=== PATIENT | male | born 1970 | race Caucasian/White ===

== ENCOUNTER → 2023-08-11 | Outpatient (CLI) | payer OTHER ==
[2023-08-11 12:11] LABS: Hematocrit 40.8 % (37.0-53.0); Hemoglobin 14.8 g/dL (13.5-17.5); Mean Corpuscular HGB 32.4 pg (26.0-34.0); Mean Corpuscular HGB Conc 36.3 g/dL (31.5-36.5); Mean Corpuscular Volume 89 fL (80-100); RDW Coefficient Variation 13.2 % (11.7-14.2); Red Blood Cell Count 4.57 M/mm3 (4.30-5.90); White Blood Cell Count 12.15 K/mm3 (4.00-11.30)
[2023-08-11 12:17] LABS: Albumin/Globulin Ratio 0.7 (0.8-1.8); Bilirubin, Total 1.1 mg/dL (0.1-1.0); Bun/Creatinine Ratio 13.9 (12.0-20.0); Calcium, Blood 8.4 mg/dL (8.5-10.1); Creatinine, Blood 1.37 mg/dL (0.60-1.20); Globulin, Blood 4.1 g/dL (2.2-4.0); Total Protein, Blood 7.1 g/dL (6.4-8.2)
[2023-08-11 12:19] LABS: Mean Platelet Volume 11.2 fL (9.1-12.4)
[2023-08-11 12:40] LABS: BAND PERCENT MAN 8 % (0-8); BASOPHILS ABSOLUTE MAN 0.12 K/mm3 (0.00-0.23); BASOPHILS PERCENT MAN 1 % (0-2); LYMPHOCYTES ABSOLUTE MAN 0.72 K/mm3 (0.84-5.20); LYMPHOCYTES PERCENT MAN 6 % (21-46); MONOCYTES ABSOLUTE MAN 0.48 K/mm3 (0.16-1.47); MONOCYTES PERCENT MAN 4 % (4-13); NEUTROPHILS ABSOLUTE MAN 10.81 K/mm3 (1.96-9.15); SEG NEUTROPHILS PERCENT MAN 81 % (41-73)
[2023-08-11 12:44] LABS: Platelet Count 38 K/mm3 (150-400)
[2023-08-11 14:55] LABS: BASOPHILS ABSOLUTE AUTO 0.04 K/mm3 (0.00-0.23); BASOPHILS PERCENT AUTO 0 % (0-2); EOSINOPHILS PERCENT AUTO 3 % (0-6); Hematocrit 39.5 % (37.0-53.0); Hemoglobin 13.9 g/dL (13.5-17.5); IMMATURE GRAN ABSOLUTE AUTO 0.15 K/mm3 (0.00-0.10); IMMATURE GRAN PERCENT AUTO 2 % (0-1); LYMPHOCYTES ABSOLUTE AUTO 0.39 K/mm3 (0.84-5.20); LYMPHOCYTES PERCENT AUTO 4 % (21-46); MONOCYTES ABSOLUTE AUTO 0.55 K/mm3 (0.16-1.47); MONOCYTES PERCENT AUTO 6 % (4-13); Mean Corpuscular HGB Conc 35.2 g/dL (31.5-36.5); Mean Corpuscular Volume 91 fL (80-100); NEUTROPHILS ABSOLUTE AUTO 7.98 K/mm3 (1.96-9.15); NEUTROPHILS PERCENT AUTO 85 % (41-73); RDW Coefficient Variation 13.2 % (11.7-14.2); RDW Standard Deviation 44.7 fL (35.1-46.3); Red Blood Cell Count 4.34 M/mm3 (4.30-5.90); White Blood Cell Count 9.41 K/mm3 (4.00-11.30)
[2023-08-11 14:59] LABS: Mean Platelet Volume 11.2 fL (9.1-12.4); Platelet Count 34 K/mm3 (150-400)
[2023-08-11 15:00] LABS: Bun/Creatinine Ratio 15.6 (12.0-20.0); Calcium, Blood 7.9 mg/dL (8.5-10.1); Creatinine, Blood 1.28 mg/dL (0.60-1.20); Potassium, Blood 3.3 mmol/L (3.5-5.5)
[2023-08-14 12:29] LABS: HIV 1,2 COMBO ANTIGEN/ANTIBODY Negative (Negative)
[2023-08-14 19:02] LABS: HBV CORE ANTIBODIES,TOTAL Negative (Negative)
[2023-08-15 18:25] LABS: HEPATITIS A ANTIBODY, IGM Negative (Negative); HEPATITIS B CORE ANTIBODY, IGM Negative (Negative); HEPATITIS B SURFACE ANTIGEN Negative (Negative); HEPATITIS C AB CIA INTERP Negative (Negative)
== END ==
LOC: LAB 12:02 → LAB SHORT 12:02
PROVIDERS: Family Medicine
DX: D69.6 Thrombocytopenia, unspecified (principal)
CPT/HCPCS: 80048; 80053; 80074; 84145; 85025; 85060; 86704; 87389

== ENCOUNTER 2023-08-15 14:51 | Emergency (ER) | payer OTHER ==
[~2023-08-15] VITALS: Ht 182.9 cm; Wt 81.7 kg
[2023-08-15 15:52] LABS: Hematocrit 34.3 % (37.0-53.0); Hemoglobin 12.4 g/dL (13.5-17.5); Mean Corpuscular HGB 31.6 pg (26.0-34.0); Mean Corpuscular HGB Conc 36.2 g/dL (31.5-36.5); Mean Corpuscular Volume 87 fL (80-100); NRBC ABSOLUTE 0.02 K/mm3 (0.00-0.02); NRBC Auto 0.1 /100 WBC (0.0-0.2); RDW Coefficient Variation 14.3 % (11.7-14.2); RDW Standard Deviation 45.7 fL (35.1-46.3); Red Blood Cell Count 3.93 M/mm3 (4.30-5.90)
[2023-08-15 16:12] LABS: Platelet Count 20 K/mm3 (150-400)
[2023-08-15 16:16] LABS: Albumin, Blood 2.2 g/dL (3.4-5.0); Albumin/Globulin Ratio 0.6 (0.8-1.8); Bilirubin, Total 3.1 mg/dL (0.1-1.0); Bun/Creatinine Ratio 36.4 (12.0-20.0); Calcium, Blood 7.9 mg/dL (8.5-10.1); Creatinine, Blood 1.51 mg/dL (0.60-1.20); Globulin, Blood 3.5 g/dL (2.2-4.0); Potassium, Blood 2.7 mmol/L (3.5-5.5); Total Protein, Blood 5.7 g/dL (6.4-8.2)
[2023-08-15 16:49] LABS: BASOPHILS PERCENT MAN 0 % (0-2); EOSINOPHILS ABSOLUTE MAN 0.17 K/mm3 (0.00-0.68); EOSINOPHILS PERCENT MAN 1 % (0-6); TOTAL CELLS COUNTED 100
[2023-08-15 16:55] LABS: BAND PERCENT MAN 17 % (0-8); LYMPHOCYTES ABSOLUTE MAN 0.35 K/mm3 (0.84-5.20); LYMPHOCYTES PERCENT MAN 2 % (21-46); METAMYELOCYTE ABSOLUTE MAN 0.17 K/mm3 (0.00-0.00); METAMYELOCYTE PERCENT MAN 1 % (0-0); MONOCYTES ABSOLUTE MAN 0.53 K/mm3 (0.16-1.47); MONOCYTES PERCENT MAN 3 % (4-13); MYELOCYTE ABSOLUTE MAN 0.35 K/mm3 (0.00-0.00); MYELOCYTE PERCENT MAN 2 % (0-0); NEUTROPHILS ABSOLUTE MAN 15.93 K/mm3 (1.96-9.15); SEG NEUTROPHILS PERCENT MAN 73 % (41-73)
[2023-08-15 16:56] LABS: Influenza A, PCR NEGATIVE (NEGATIVE); Influenza B, PCR NEGATIVE (NEGATIVE); Resp Syncytial Virus, PCR NEGATIVE (NEGATIVE); SARS-Cov-2 (COVID-19) PCR, MMC NEGATIVE (NEGATIVE)
[2023-08-15 16:56] LABS: PROMYELOCYTE ABSOLUTE MAN 0.17 K/mm3 (0.00-0.00); PROMYELOCYTE PERCENT MAN 1 % (0-0)
[2023-08-15 17:09] LABS: U Amphetamine Screen Not Detected; U Barbituate Screen Not Detected; U Benzodiazapine Screen Not Detected; U Buprenorphine Screen Not Detected; U Cannabinoids Screen Not Detected; U Cocaine Screen Not Detected; U Methadone Screen Not Detected; U Methamphetamine Screen Not Detected; U Opiates Screen Not Detected; U Oxycodone Screen Not Detected; U Phencyclidine Screen Not Detected
[2023-08-15 18:11] LABS: Source, Urine Clean Catch
[2023-08-15 18:19] LABS: Appearance, Urine Cloudy (Clear); Bilirubin, Urine Neg (Neg); Blood, Urine 4+ (Neg); Color, Urine Amber (P-Yellow); Glucose Qualitative, Urine Neg (Neg); Ketones, Urine Neg (Neg); Leukocyte Esterase, Urine 1+ (Neg); Nitrite, Urine Neg (Neg); Protein, Urine 3+ (Neg); Urobilinogen, Urine 1+ (Normal)
[2023-08-15 18:29] LABS: Bilirubin, Indirect 0.5 mg/dL (0.1-0.7); Bilirubin, Total 2.5 mg/dL (0.1-1.0)
[2023-08-15 18:46] LABS: Amorphous Light (0-Heavy); Bacteria Few /hpf; Granular Casts 0-2 /lpf (0); Hyaline Casts 0-2 /lpf (0-2); Squamous Epithelial Cells Few /hpf (Few)
[2023-08-15 18:59] LABS: International Normalized Ratio 1.17; Prothrombin Time Results 12.2 Sec (9.7-11.5)
[2023-08-15 19:20] LABS: IMMATURE RETIC FRACTION 11.5 % (2.3-16.0); RETIC HGB EQUIVALENT 31.2 pg (28.20-36.60); RETICULOCYTE ABSOLUTE 0.0175 M/mm3 (0.0200-0.1100); RETICULOCYTE COUNT PERCENT 0.55 % (0.50-2.50)
[2023-08-15 23:00] VITALS: BP 135/118
[2023-08-16 18:05] LABS: HAPTOGLOBIN 163 mg/dL (30-200)
[2023-08-16 18:33] LABS: HEPATITIS A ANTIBODY, IGM Negative (Negative); HEPATITIS B CORE ANTIBODY, IGM Negative (Negative); HEPATITIS B SURFACE ANTIGEN Negative (Negative); HEPATITIS C AB CIA INTERP Negative (Negative); HEPATITIS C ANTIBODY CIA INDEX 0.05 IV
== END 2023-08-16 00:44 | disposition short-term general hospital (02) ==
LOC: ER 14:51
PROVIDERS: Emergency Medicine; Nurse Practitioner Acute Care
DX: M31.19 Other thrombotic microangiopathy (principal); I60.9 Nontraumatic subarachnoid hemorrhage, unspecified; I26.99 Other pulmonary embolism without acute cor pulmonale; N28.0 Ischemia and infarction of kidney; G93.40 Encephalopathy, unspecified; Z20.822 Contact with and (suspected) exposure to COVID-19
CPT/HCPCS: 0241U; 51701; 70450; 70496; 70498; 71045; 74177; 80053; 80074; 81001; 82140; 82247; 82248; 82550; 83010; 83605; 83615; 83690; 84145; 84443; 85025; 85045; 85384; 85610; 85730; 86880; 87040; 87077; 87086; 87147; 87186; 87449; 93005; 93010; 96361; 96365; 96366; 96367; 96368; 96375; 99285-25; A9270; J0696; J1100; J1885; J2060; J2185; J3370; J3480; J7030; J7050; Q9967

== ENCOUNTER → 2023-09-28 | Outpatient (CLI) | payer OTHER ==
[2023-09-28 17:13] LABS: Hematocrit 34.1 % (37.0-53.0); Hemoglobin 10.2 g/dL (13.5-17.5); Mean Corpuscular HGB 27.8 pg (26.0-34.0); Mean Corpuscular HGB Conc 29.9 g/dL (31.5-36.5); Mean Corpuscular Volume 93 fL (80-100); Platelet Count 636 K/mm3 (150-400); RDW Coefficient Variation 15.9 % (11.7-14.2); RDW Standard Deviation 54.1 fL (35.1-46.3); Red Blood Cell Count 3.67 M/mm3 (4.30-5.90); White Blood Cell Count 10.82 K/mm3 (4.00-11.30)
[2023-09-30 11:08] LABS: A/G RATIO 1.1 (1.2-2.2); BILIRUBIN, TOTAL 0.3 mg/dL (0.0-1.2); CALCIUM, SERUM 9.6 mg/dL (8.7-10.2); CREATININE, SERUM 0.91 mg/dL (0.76-1.27); GLOBULIN, TOTAL 3.8 g/dL (1.5-4.5); POTASSIUM, SERUM 4.1 mmol/L (3.5-5.2); PROTEIN, TOTAL, SERUM 7.9 g/dL (6.0-8.5)
== END ==
LOC: LAB SHORT 16:27 → LAB 16:27
PROVIDERS: Internal Medicine Infectious Disease
DX: D64.9 Anemia, unspecified (principal); Z95.4 Presence of other heart-valve replacement; Z86.14 Personal history of Methicillin resistant Staphylococcus aureus infection
CPT/HCPCS: 80053; 85027; 85651

== ENCOUNTER → 2023-10-02 | Outpatient (CLI) | payer OTHER ==
[2023-10-02 15:49] LABS: C-REACTIVE PROTEIN, EXT RANGE 0.512 mg/dL (0.000-0.300)
[2023-10-02 15:51] LABS: Albumin, Blood 3.1 g/dL (3.4-5.0); Albumin/Globulin Ratio 0.7 (0.8-1.8); Bilirubin, Total 0.3 mg/dL (0.1-1.0); Bun/Creatinine Ratio 29.5 (12.0-20.0); Calcium, Blood 9.1 mg/dL (8.5-10.1); Creatinine, Blood 0.64 mg/dL (0.60-1.20); Globulin, Blood 4.6 g/dL (2.2-4.0); Potassium, Blood 4.4 mmol/L (3.5-5.5); Total Protein, Blood 7.7 g/dL (6.4-8.2)
[2023-10-02 16:20] LABS: BASOPHILS ABSOLUTE AUTO 0.11 K/mm3 (0.00-0.23); BASOPHILS PERCENT AUTO 1 % (0-2); EOSINOPHILS ABSOLUTE AUTO 0.62 K/mm3 (0.00-0.68); EOSINOPHILS PERCENT AUTO 7 % (0-6); Hematocrit 34.4 % (37.0-53.0); Hemoglobin 10.5 g/dL (13.5-17.5); IMMATURE GRAN ABSOLUTE AUTO 0.11 K/mm3 (0.00-0.10); IMMATURE GRAN PERCENT AUTO 1 % (0-1); LYMPHOCYTES PERCENT AUTO 21 % (21-46); MONOCYTES ABSOLUTE AUTO 1.33 K/mm3 (0.16-1.47); MONOCYTES PERCENT AUTO 15 % (4-13); Mean Corpuscular HGB 28.2 pg (26.0-34.0); Mean Corpuscular HGB Conc 30.5 g/dL (31.5-36.5); Mean Corpuscular Volume 92 fL (80-100); Mean Platelet Volume 9.4 fL (9.1-12.4); NEUTROPHILS ABSOLUTE AUTO 5.01 K/mm3 (1.96-9.15); NEUTROPHILS PERCENT AUTO 55 % (41-73); Platelet Count 476 K/mm3 (150-400); RDW Coefficient Variation 15.7 % (11.7-14.2); RDW Standard Deviation 53.3 fL (35.1-46.3); Red Blood Cell Count 3.73 M/mm3 (4.30-5.90); White Blood Cell Count 9.08 K/mm3 (4.00-11.30)
== END ==
LOC: LAB 14:38 → LAB SHORT 14:38
PROVIDERS: Internal Medicine Infectious Disease
DX: D64.9 Anemia, unspecified (principal); Z95.4 Presence of other heart-valve replacement; Z86.14 Personal history of Methicillin resistant Staphylococcus aureus infection
CPT/HCPCS: 80053; 85025; 85651; 86140

== ENCOUNTER → 2023-10-10 | Outpatient (CLI) | payer OTHER ==
[2023-10-10 13:09] LABS: BASOPHILS ABSOLUTE AUTO 0.12 K/mm3 (0.00-0.23); BASOPHILS PERCENT AUTO 1 % (0-2); EOSINOPHILS ABSOLUTE AUTO 0.59 K/mm3 (0.00-0.68); EOSINOPHILS PERCENT AUTO 6 % (0-6); Hematocrit 38.1 % (37.0-53.0); Hemoglobin 11.6 g/dL (13.5-17.5); IMMATURE GRAN ABSOLUTE AUTO 0.05 K/mm3 (0.00-0.10); IMMATURE GRAN PERCENT AUTO 1 % (0-1); LYMPHOCYTES ABSOLUTE AUTO 2.19 K/mm3 (0.84-5.20); LYMPHOCYTES PERCENT AUTO 21 % (21-46); MONOCYTES ABSOLUTE AUTO 1.29 K/mm3 (0.16-1.47); MONOCYTES PERCENT AUTO 12 % (4-13); Mean Corpuscular HGB 27.8 pg (26.0-34.0); Mean Corpuscular HGB Conc 30.4 g/dL (31.5-36.5); Mean Corpuscular Volume 91 fL (80-100); Mean Platelet Volume 9.2 fL (9.1-12.4); NEUTROPHILS ABSOLUTE AUTO 6.35 K/mm3 (1.96-9.15); NEUTROPHILS PERCENT AUTO 60 % (41-73); Platelet Count 330 K/mm3 (150-400); RDW Coefficient Variation 15.7 % (11.7-14.2); RDW Standard Deviation 52.5 fL (35.1-46.3); Red Blood Cell Count 4.18 M/mm3 (4.30-5.90); White Blood Cell Count 10.59 K/mm3 (4.00-11.30)
[2023-10-10 13:16] LABS: C-REACTIVE PROTEIN, EXT RANGE 0.461 mg/dL (0.000-0.300)
[2023-10-10 13:18] LABS: Albumin, Blood 3.5 g/dL (3.4-5.0); Albumin/Globulin Ratio 0.7 (0.8-1.8); Bilirubin, Total 0.4 mg/dL (0.1-1.0); Bun/Creatinine Ratio 39.6 (12.0-20.0); Calcium, Blood 9.4 mg/dL (8.5-10.1); Creatinine, Blood 0.68 mg/dL (0.60-1.20); Globulin, Blood 4.7 g/dL (2.2-4.0); Potassium, Blood 4.1 mmol/L (3.5-5.5); Total Protein, Blood 8.2 g/dL (6.4-8.2)
== END ==
LOC: LAB 12:20 → LAB SHORT 12:20
PROVIDERS: Family Medicine
DX: D64.9 Anemia, unspecified (principal); Z95.4 Presence of other heart-valve replacement
CPT/HCPCS: 80053; 85025; 85651; 86140